=== PATIENT | female | born 1990 | race American Indian/Alaskan Native ===

== ENCOUNTER 2016-11-24 20:29 | Emergency (ER) | payer MEDICAID, OTHER ==
--- NOTE | 2016-11-25 00:33 | Emergency Department Report ---
Eye Injury/Foreign Body - HPI Duration: 2 Days Eye Location: Right Severity: Moderate Eye Symptoms: Eye Pain: Yes, Blurred Vision: Yes, Eye Redness: Yes, Recalls Injury: Yes Other History: 25-year-old female past medical history corneal abrasion in the past. Patient states that yesterday she was playing with her child at home child kicked her in the right eye. Patient experienced immediate pain in right eye and subsequently developed slightly blurry vision and watery discharge right eye. Patient states that she wears contacts but was not wearing her contacts last night. Patient is awake alert and oriented 3 right eye appears red and injected. Patient states that bright lights are painful. Denies any bleeding from my states that her overall vision is intact. Unaware of tetanus status. ED Review of Systems ROS: Stated complaint: EYE PAIN Other details as noted in HPI Constitutional: denies: chills, fever Eyes: eye pain, eye discharge. denies: vision change ENT: denies: ear pain, throat pain Respiratory: denies: cough, shortness of breath, wheezing Cardiovascular: denies: chest pain, palpitations Endocrine: no symptoms reported Gastrointestinal: denies: abdominal pain, nausea, diarrhea Genitourinary: denies: urgency, dysuria, discharge Musculoskeletal: denies: back pain, joint swelling, arthralgia Skin: denies: rash, lesions Neurological: denies: headache, weakness, paresthesias Psychiatric: denies: anxiety, depression Hematological/Lymphatic: denies: easy bleeding, easy bruising ED Past Medical Hx - Past Medical History Previous Medical History?: No - Surgical History Past Surgical History?: Yes Additional Surgical History: 2 - Social History Smoking Status: Current Every Day Smoker Substance Use Type: Alcohol - Medications Home Medications: Home Medications Medication Instructions Recorded Confirmed Last Taken Type metroNIDAZOLE [Flagyl] 500 mg PO BID #14 tablet 11/14/14 Unknown Rx Nitrofurantoin [place]/M-Cryst 100 mg PO Q12HR #14 capsule 11/15/14 Unknown Rx [Macrobid] Acetaminophen/Codeine [Tylenol #3] 1 tab PO Q6H PRN #21 tab 05/08/15 Unknown Rx Moxifloxacin 0.5% [Vigamox] 1 drops OD Q8H #1 bottle 05/08/15 Unknown Rx Cyclobenzaprine [Flexeril] 10 mg PO TID PRN #15 tablet 02/23/16 Unknown Rx Ibuprofen [Motrin 800 MG tab] 800 mg PO Q8HR PRN #30 tablet 02/23/16 Unknown Rx Acetaminophen/Codeine [Tylenol 1 tab PO Q6H PRN #8 tab 11/25/16 Unknown Rx /Codeine # 3 tab] Naproxen [Naprosyn TAB] 500 mg PO BID PRN #30 tablet 11/25/16 Unknown Rx Polyvinyl Alcohol/Povidone 15 ml OP Q4H PRN #1 drops 11/25/16 Unknown Rx [Artificial Tears Drops] Tobramycin 0.3% [Tobrex] 1 drop OU Q4H #1 bottle 11/25/16 Unknown Rx Eye Injury Exam - Exam General: Vital signs noted. No distress. Alert and acting appropriately. - Visual Acuity Left Vision Acuity Degree: 20/70 Eye Exam: Right Injection, Right Fluorescein Uptake (slight abrasion adjacent to pupil right eye), Right Photophobia (midl photophobia right eye), Neither Abnormal Pupil, Neither EOMI, Neither Eye Foreign Body, Neither Lid Foreign Body Right Vision Acuity Degree: 20/70 Bilateral Vision Acuity Degree: 20/50 ED Course Vital Signs 11/24/16 20:40 Temperature 98.5 F Pulse Rate 89 Respiratory 14 Rate Blood Pressure 130/77 [Right] O2 Sat by Pulse 98 Oximetry ED Medical Decision Making - Medical Decision Making A/P: Corneal abrasion right eye 1-tetanus updated today 2-naproxen when necessary for pain, short course tyelnol3 3-tobramycin drops right eye, artificial tears right eye 4-Vision 20/30 left eye, vision 20/40 right eye. I advised patient to follow up with an pulp mixer as soon as possible provided her with referral information. Patient's overall vision is intact, visible corneal abrasion on surface of right eye. Chanelle sign negative on clinical exam anterior chamber appears normal no hyphema. I advised patient that she should follow-up with an pulp mixer to mitigate any potential long-term damage to the eye she has had a corneal abrasion in the past and currently has one as well. I warned patient that lack of follow-up with a specialist within the next week could potentially result in blindness and permanent damage to the eye and disability decreased quality of life etc. patient stated she understood the importance of following up with an pulp mixer and will do so as soon as possible 5- I discussed case w/ Dr. Russ before discharge Critical care attestation.: If time is entered above; I have spent that time in minutes in the direct care of this critically ill patient, excluding procedure time. ED Disposition Clinical Impression: Corneal abrasion, right Qualifiers: Encounter type: initial encounter Qualified Code(s): S05.01XA - Injury of conjunctiva and corneal abrasion without foreign body, right eye, initial encounter Disposition: DISCHARGED TO HOME OR SELFCARE Is pt being admited?: No Does the pt Need Aspirin: No Condition: Stable Instructions: Corneal Abrasion (ED) Prescriptions: Acetaminophen/Codeine [Tylenol /Codeine # 3 tab] 1 tab PO Q6H PRN #8 tab PRN Reason: Pain Naproxen [Naprosyn TAB] 500 mg PO BID PRN #30 tablet PRN Reason: Pain Polyvinyl Alcohol/Povidone [Artificial Tears Drops] 15 ml OP Q4H PRN #1 drops PRN Reason: Pain Tobramycin 0.3% [Tobrex] 1 drop OU Q4H #1 bottle Referrals: BRYANNA RAPP MD [Staff Physician] - 3-5 Days [facility] [Outside] - 3-5 Days Forms: Work/School Release Form(ED) Time of Disposition: 01:30
[2016-11-25] MEDS ORDERED: TETRACAINE 0.5% OU ONE (00:34)
[2016-11-25] MEDS ORDERED: FUL-GLO OP ONE (00:34)
[2016-11-25] MEDS ORDERED: BOOSTRIX IM ONE (01:47)
[2016-11-25 02:32] VITALS: BP 130/72
== END 2016-11-25 02:00 | disposition home or self-care (01) ==
LOC: ED 20:29
DX: S05.01XA Injury of conjunctiva and corneal abrasion without foreign body, right eye, initial encounter (principal); F17.200 Nicotine dependence, unspecified, uncomplicated; W50.1XXA Accidental kick by another person, initial encounter; Y93.89 Activity, other specified; Y99.9 Unspecified external cause status; Y92.89 Other specified places as the place of occurrence of the external cause
CPT/HCPCS: 90471; 90715

== ENCOUNTER 2017-04-11 21:42 | Emergency (ER) | payer MEDICAID | END 2017-04-11 22:00 | disposition left against medical advice (07) | LOC: ED 21:42 | DX: B01.9 Varicella without complication (principal); Z53.21 Procedure and treatment not carried out due to patient leaving prior to being seen by health care provider ==

== ENCOUNTER 2017-08-06 20:31 | Emergency (ER) | payer MEDICAID ==
[2017-08-06] MEDS ORDERED: ASPIRIN PO ONE (21:01)
[2017-08-06 21:45] LABS: Bilirubin,Urine NEG (Negative); Blood,Urine SM (Negative); Color,Urine Yellow (Yellow); Mucus,Urine FEW /HPF; Nitrite,Urine NEG (Negative)
[2017-08-06 22:01] LABS: Basophils % (Auto) 0.4 % (0.0-1.8); Eosinophils % (Auto) 0.4 % (0.0-4.3); Hematocrit 39.3 % (30.3-42.9); Hemoglobin 12.9 gm/dl (10.1-14.3); Lymphocytes % (Auto) 35.7 % (13.4-35.0); Mean Corpuscular HGB Conc 33 % (30-34); Mean Corpuscular Hemoglobin 31 pg (28-32); Mean Corpuscular Volume 93 fl (79-97); Monocytes # (Auto) 0.4 K/mm3 (0.0-0.8); Monocytes % (Auto) 6.4 % (0.0-7.3); Platelet Count 212 K/mm3 (140-440); Red Blood Count 4.21 M/mm3 (3.65-5.03); Red Cell Distribution Width 14.1 % (13.2-15.2)
[2017-08-06 22:04] LABS: BUN/Creatinine Ratio 23; Blood Urea Nitrogen 16 mg/dL (7-17); Calcium 9.1 mg/dL (8.4-10.2); Hemolysis Index 18
[2017-08-06 22:11] LABS: INR 0.92 (0.87-1.13)
[2017-08-06 22:12] LABS: Partial Thromboplastin Time 28.6 Sec. (24.2-36.6)
--- NOTE | 2017-08-07 04:05 | Emergency Department Report ---
ED Chest Pain HPI - General Chief Complaint: Chest Pain Stated Complaint: CHEST PAIN Source: patient Mode of arrival: Ambulatory Limitations: No Limitations - History of Present Illness Initial Comments: Patient is 26 years old female with no significant past medical history presented with left-sided chest pain for the last 3 days. She described her chest as sharp increase in his movements. Patient denied any shortness of breath, no nausea no vomiting. Patient denied any fever. MD Complaint: chest pain -: days(s) Pain Location: substernal Severity scale (0 -10): 8 Quality: sharp Improves With: remaining still Worsens With: movement - Related Data Previous Rx's Medication Instructions Recorded Last Taken Type metroNIDAZOLE [Flagyl] 500 mg PO BID #14 tablet 11/14/14 Unknown Rx Nitrofurantoin [place]/M-Cryst 100 mg PO Q12HR #14 capsule 11/15/14 Unknown Rx [Macrobid] Acetaminophen/Codeine [Tylenol #3] 1 tab PO Q6H PRN #21 tab 05/08/15 Unknown Rx Moxifloxacin 0.5% [Vigamox] 1 drops OD Q8H #1 bottle 05/08/15 Unknown Rx Cyclobenzaprine [Flexeril] 10 mg PO TID PRN #15 tablet 02/23/16 Unknown Rx Ibuprofen [Motrin 800 MG tab] 800 mg PO Q8HR PRN #30 tablet 02/23/16 Unknown Rx Acetaminophen/Codeine [Tylenol 1 tab PO Q6H PRN #8 tab 11/25/16 Unknown Rx /Codeine # 3 tab] Naproxen [Naprosyn TAB] 500 mg PO BID PRN #30 tablet 11/25/16 Unknown Rx Polyvinyl Alcohol/Povidone 15 ml OP Q4H PRN #1 drops 11/25/16 Unknown Rx [Artificial Tears Drops] Tobramycin 0.3% [Tobrex] 1 drop OU Q4H #1 bottle 11/25/16 Unknown Rx Allergies Allergy/AdvReac Type Severity Reaction Status Date / Time No Known Allergies Allergy Verified 05/08/15 18:17 Heart Score - HEART Score History: Slightly suspicious EKG: Normal Age: < 45 Risk factors: No known risk factors Troponin: < normal limit HEART Score: 0 - Critical Actions Critical Actions: 0-3 pts:0.9-1.7%risk of adverse cardiac event.Candidate for discharge ED Review of Systems ROS: Stated complaint: CHEST PAIN Other details as noted in HPI Comment: All other systems reviewed and negative Constitutional: denies: chills, fever Respiratory: denies: cough, orthopnea, shortness of breath Cardiovascular: chest pain. denies: palpitations, dyspnea on exertion Gastrointestinal: denies: abdominal pain, nausea, vomiting, diarrhea, constipation Genitourinary: denies: urgency Neurological: denies: headache, weakness, numbness, paresthesias ED Past Medical Hx - Past Medical History Previous Medical History?: No - Surgical History Past Surgical History?: Yes Additional Surgical History: 2 - Social History Smoking Status: Never Smoker - Medications Home Medications: Home Medications Medication Instructions Recorded Confirmed Last Taken Type metroNIDAZOLE [Flagyl] 500 mg PO BID #14 tablet 11/14/14 Unknown Rx Nitrofurantoin [place]/M-Cryst 100 mg PO Q12HR #14 capsule 11/15/14 Unknown Rx [Macrobid] Acetaminophen/Codeine [Tylenol #3] 1 tab PO Q6H PRN #21 tab 05/08/15 Unknown Rx Moxifloxacin 0.5% [Vigamox] 1 drops OD Q8H #1 bottle 05/08/15 Unknown Rx Cyclobenzaprine [Flexeril] 10 mg PO TID PRN #15 tablet 02/23/16 Unknown Rx Ibuprofen [Motrin 800 MG tab] 800 mg PO Q8HR PRN #30 tablet 02/23/16 Unknown Rx Acetaminophen/Codeine [Tylenol 1 tab PO Q6H PRN #8 tab 11/25/16 Unknown Rx /Codeine # 3 tab] Naproxen [Naprosyn TAB] 500 mg PO BID PRN #30 tablet 11/25/16 Unknown Rx Polyvinyl Alcohol/Povidone 15 ml OP Q4H PRN #1 drops 11/25/16 Unknown Rx [Artificial Tears Drops] Tobramycin 0.3% [Tobrex] 1 drop OU Q4H #1 bottle 11/25/16 Unknown Rx ED Physical Exam - General Limitations: No Limitations General appearance: alert, in no apparent distress - Head Head exam: Present: atraumatic, normocephalic, normal inspection - ENT ENT exam: Present: normal exam, normal orophraynx - Neck Neck exam: Present: normal inspection, full ROM. Absent: tenderness, meningismus - Respiratory Respiratory exam: Present: normal lung sounds bilaterally, chest wall tenderness. Absent: respiratory distress, wheezes, rales, rhonchi, stridor, accessory muscle use, decreased breath sounds, prolonged expiratory - Cardiovascular Cardiovascular Exam: Present: regular rate, normal rhythm, normal heart sounds - GI/Abdominal GI/Abdominal exam: Present: soft, normal bowel sounds. Absent: distended, tenderness, guarding, rebound, rigid, organomegaly, mass, bruit, pulsatile mass , hernia - Extremities Exam Extremities exam: Present: normal inspection, full ROM, normal capillary refill - Back Exam Back exam: Present: normal inspection, full ROM. Absent: tenderness, CVA tenderness (R), CVA tenderness (L) - Neurological Exam Neurological exam: Present: alert, oriented X3, CN II-XII intact - Skin Skin exam: Present: warm, intact, normal color ED Course Vital Signs 08/06/17 08/07/17 08/07/17 20:57 01:01 01:15 Temperature 98.8 F 97.8 F Pulse Rate 73 74 Respiratory 16 16 Rate Blood Pressure 110/72 O2 Sat by Pulse 99 Oximetry ED Medical Decision Making - Lab Data Result diagrams: 08/06/17 21:25 08/06/17 21:25 - EKG Data -: EKG Interpreted by Ca EKG shows normal: sinus rhythm Rate: normal - EKG Data Interpretation: no acute changes Critical care attestation.: If time is entered above; I have spent that time in minutes in the direct care of this critically ill patient, excluding procedure time. ED Disposition Clinical Impression: Chest pain, Costochondritis, acute Disposition: - TO HOME OR SELFCARE Is pt being admited?: No Condition: Stable Instructions: Chest Pain (ED), Costochondritis (ED) Referrals: MELI OCHOA MD [Primary Care Provider] - 3-5 Days
[2017-08-07 04:24] VITALS: BP 146/95
== END 2017-08-07 04:24 | disposition home or self-care (01) ==
LOC: ED 20:31
DX: M94.0 Chondrocostal junction syndrome [Tietze] (principal)
CPT/HCPCS: 36415; 80048; 81001; 84484; 84703; 85025; 85610; 85730; 93005; 93010

== ENCOUNTER 2017-12-04 20:44 | Emergency (ER) | payer MEDICAID ==
[2017-12-04 22:04] LABS: Bilirubin,Urine NEG (Negative); Blood,Urine SM (Negative); Color,Urine Yellow (Yellow); Hyaline Casts,Urine 1 /LPF; Mucus,Urine FEW /HPF; Urobilinogen,Urine < 2.0 mg/dL (<2.0)
[2017-12-05] MEDS ORDERED: TYLENOL PO ONE (06:43)
[2017-12-05 07:59] VITALS: BP 130/70
--- NOTE | 2017-12-05 08:11 | Ultrasound Report ---
Pelvic and transvaginal sonography: History: with pelvic pain. Findings: Uterus measures 10.7 x 4.1 x 6.4 cm. Single intrauterine gestational sac is noted. Dilated to the gestational sac is 8.8 mm corresponding to 5 weeks and 5 days of gestation. Yolk sac is identified however no heart rate was seen or documented. Right ovary 4.6 x 1.7 x 1.4 cm. Left ovary 3.4 x 1.6 x 2.3 cm. Complex cyst in the left ovary measures 1.7 cm. Moderate amount of fluid identified in the cul-de-sac. Impression: Single gestational sac with yolk sac identified.
--- NOTE | 2017-12-05 08:35 | Emergency Department Report ---
ED HPI - General Chief complaint: Urogenital-Female Stated complaint: ABD PAIN/ Time Seen by Provider: 12/05/17 06:15 Source: patient Mode of arrival: Ambulatory Limitations: No Limitations - History of Present Illness Initial comments: Patient is a 26-year-old [place] female who is presenting with lower abdominal crampiness. Patient took a Percocet test at home which was positive. Patient was estimated that she is between 5 and 6 weeks. Patient states she has no abnormal bleeding vaginal discharge or dysuria and her only complaint is pelvic pain and cramping. Patient states his pain is tenderness severity. Patient denies any nausea vomiting or diarrhea at this time. - Related Data Previous Rx's Medication Instructions Recorded Last Taken Type metroNIDAZOLE [Flagyl] 500 mg PO BID #14 tablet 11/14/14 Unknown Rx Nitrofurantoin [place]/M-Cryst 100 mg PO Q12HR #14 capsule 11/15/14 Unknown Rx [Macrobid] Acetaminophen/Codeine [Tylenol #3] 1 tab PO Q6H PRN #21 tab 05/08/15 Unknown Rx Moxifloxacin 0.5% [Vigamox] 1 drops OD Q8H #1 bottle 05/08/15 Unknown Rx Cyclobenzaprine [Flexeril] 10 mg PO TID PRN #15 tablet 02/23/16 Unknown Rx Ibuprofen [Motrin 800 MG tab] 800 mg PO Q8HR PRN #30 tablet 02/23/16 Unknown Rx Acetaminophen/Codeine [Tylenol 1 tab PO Q6H PRN #8 tab 11/25/16 Unknown Rx /Codeine # 3 tab] Naproxen [Naprosyn TAB] 500 mg PO BID PRN #30 tablet 11/25/16 Unknown Rx Polyvinyl Alcohol/Povidone 15 ml OP Q4H PRN #1 drops 11/25/16 Unknown Rx [Artificial Tears Drops] Tobramycin 0.3% [Tobrex] 1 drop OU Q4H #1 bottle 11/25/16 Unknown Rx Naproxen [Naprosyn] 500 mg PO BID #14 tablet 08/07/17 Unknown Rx Allergies Allergy/AdvReac Type Severity Reaction Status Date / Time No Known Allergies Allergy Verified 05/08/15 18:17 ED Review of Systems ROS: Stated complaint: ABD PAIN/ Other details as noted in HPI Comment: All other systems reviewed and negative ED Past Medical Hx - Past Medical History Previous Medical History?: No - Surgical History Additional Surgical History: 2 - Social History Smoking Status: Never Smoker Substance Use Type: None - Medications Home Medications: Home Medications Medication Instructions Recorded Confirmed Last Taken Type metroNIDAZOLE [Flagyl] 500 mg PO BID #14 tablet 11/14/14 Unknown Rx Nitrofurantoin [place]/M-Cryst 100 mg PO Q12HR #14 capsule 11/15/14 Unknown Rx [Macrobid] Acetaminophen/Codeine [Tylenol #3] 1 tab PO Q6H PRN #21 tab 05/08/15 Unknown Rx Moxifloxacin 0.5% [Vigamox] 1 drops OD Q8H #1 bottle 05/08/15 Unknown Rx Cyclobenzaprine [Flexeril] 10 mg PO TID PRN #15 tablet 02/23/16 Unknown Rx Ibuprofen [Motrin 800 MG tab] 800 mg PO Q8HR PRN #30 tablet 02/23/16 Unknown Rx Acetaminophen/Codeine [Tylenol 1 tab PO Q6H PRN #8 tab 11/25/16 Unknown Rx /Codeine # 3 tab] Naproxen [Naprosyn TAB] 500 mg PO BID PRN #30 tablet 11/25/16 Unknown Rx Polyvinyl Alcohol/Povidone 15 ml OP Q4H PRN #1 drops 11/25/16 Unknown Rx [Artificial Tears Drops] Tobramycin 0.3% [Tobrex] 1 drop OU Q4H #1 bottle 11/25/16 Unknown Rx Naproxen [Naprosyn] 500 mg PO BID #14 tablet 08/07/17 Unknown Rx ED Physical Exam - General Limitations: No Limitations General appearance: alert, in no apparent distress - Head Head exam: Present: atraumatic, normocephalic - Eye Eye exam: Present: normal appearance - ENT ENT exam: Present: mucous membranes moist - Neck Neck exam: Present: normal inspection - Respiratory Respiratory exam: Present: normal lung sounds bilaterally. Absent: respiratory distress - Cardiovascular Cardiovascular Exam: Present: regular rate, normal rhythm. Absent: systolic murmur, diastolic murmur, rubs, gallop - GI/Abdominal GI/Abdominal exam: Present: soft, tenderness (mild ssuprapubic ), normal bowel sounds. Absent: distended, guarding - Extremities Exam Extremities exam: Present: normal inspection - Back Exam Back exam: Present: normal inspection - Neurological Exam Neurological exam: Present: alert, oriented X3 - Psychiatric Psychiatric exam: Present: normal affect, normal mood - Skin Skin exam: Present: warm, dry, intact, normal color. Absent: rash ED Course Vital Signs 12/04/17 12/05/17 12/05/17 21:00 06:43 06:44 Temperature 98.5 F Pulse Rate 85 88 Respiratory 18 20 20 Rate Blood Pressure 138/78 Blood Pressure 128/74 [Left] O2 Sat by Pulse 100 100 99 Oximetry 12/05/17 07:58 Temperature 98.5 F Pulse Rate 88 Respiratory Rate Blood Pressure Blood Pressure 130/70 [Left] O2 Sat by Pulse 99 Oximetry ED Medical Decision Making - Lab Data Lab Results 12/04/17 12/04/17 Range/Units 21:18 21:37 HCG, Quant 4181 H (0-4) mIU/mL Urine Color Yellow (Yellow) Urine Turbidity Clear (Clear) Urine pH 5.0 (5.0-7.0) Ur Specific [place] 1.021 (1.003-1.030) Urine Protein 100 mg/dl (Negative) mg/dL Urine Glucose (UA) Neg (Negative) mg/dL Urine Ketones Neg (Negative) mg/dL Urine Blood Sm (Negative) Urine Nitrite Neg (Negative) Urine Bilirubin Neg (Negative) Urine Urobilinogen < 2.0 (<2.0) mg/dL Ur Leukocyte Esterase Neg (Negative) Urine WBC (Auto) 3.0 (0.0-6.0) /HPF Urine RBC (Auto) 6.0 (0.0-6.0) /HPF U Epithel Cells (Auto) 9.0 (0-13.0) /HPF Hyaline Casts 1 /LPF Urine Mucus Few /HPF - Radiology Data Pelvic and transvaginal sonography: History: with pelvic pain. Findings : Uterus measures 10.7 x 4.1 x 6.4 cm. Single intrauterine gestational sac is noted. Dilated to the gestational sac is 8.8 mm corresponding to 5 weeks and 5 days of gestation. Yolk sac is identified however no heart rate was seen or documented. Right ovary 4.6 x 1.7 x 1.4 cm. Left ovary 3.4 x 1.6 x 2.3 cm. Complex cyst in the left ovary measures 1.7 cm. Moderate amount of fluid identified in the cul-de-sac. Impression: Single gestational sac with yolk sac identified. Transcribed By: PTP Dictated By: YESSICA TOMPKINS MD Electronically Authenticated By: YESSICA TOMPKINS MD Signed Date/Time: 12/05/17 0749 - Medical Decision Making Ectopic has been ruled out at this time. The patient has no vaginal bleeding or vaginal discharge and pelvic exams deferred. Patient's urinalysis is negative for urinary tract infection. Patient is having some crampiness associated with . Patient be discharged home. Critical care attestation.: If time is entered above; I have spent that time in minutes in the direct care of this critically ill patient, excluding procedure time. ED Disposition Clinical Impression: Abdominal pain affecting Disposition: DC-01 TO HOME OR SELFCARE Is pt being admited?: No Does the pt Need Aspirin: No Condition: Stable Referrals: PRIMARY CAREMD [Primary Care Provider] - 3-5 Days
== END 2017-12-05 08:48 | disposition home or self-care (01) ==
LOC: ED 20:44
DX: O26.891 Other specified pregnancy related conditions, first trimester (principal); R10.2 Pelvic and perineal pain; Z3A.01 Less than 8 weeks gestation of pregnancy
CPT/HCPCS: 36415; 76801; 76817; 81001; 84702; 99284

== ENCOUNTER 2019-03-13 15:22 | Emergency (ER) | payer MEDICAID ==
[2019-03-13 16:04] VITALS: BP 134/76
--- NOTE | 2019-03-13 16:04 | Event Note ---
ED Screening Note ED Screening Note: states she has swelling to her vagina this morning no itching no lesions or blisters no discharge no dysuria LNMP: February 20 This initial assessment/diagnostic orders/clinical plan/treatment(s) is/are subject to change based on patients health status, clinical progression and re- assessment by fellow clinical providers in the ED. Further treatment and workup at subsequent clinical providers discretion. Patient/guardian urged not to elope from the ED as their condition may be serious if not clinically assessed and managed.
--- NOTE | 2019-03-13 18:33 | Emergency Department Report ---
ED Female HPI - General Chief complaint: Urogenital-Female Stated complaint: VAGINAL AREA SWOLLEN Time Seen by Provider: 03/13/19 16:03 Source: patient Mode of arrival: Ambulatory Limitations: No Limitations - History of Present Illness Initial comments: This is a 28-year-old female nontoxic, well nourished in appearance, no acute signs of distress presents to the ED with c/o of vaginal irritation and some slight vaginal discharge. Patient stated that she has been taking medication to increase fertility and had sexual intercourse few times a day for several weeks and since then started to have vaginal irritation. Patient describes vaginal discharge with slight foul order. Patient states she is not concerned about STD but would like to be tested. Patient denies any urinary symptoms. Patient denies any fever, chills, nausea, vomiting, chest pain, shortness of breath, headache or stiff neck. Patient denies any abdominal pain or pelvic pain. Denies any allergies to significant past medical history. MD Complaint: vaginal discharge -: days(s) Associated Symptoms: vaginal discharge. denies: vaginal bleeding, abdominal pain, nausea/vomiting, fever/chills, headaches, loss of appetite, dysuria, hematuria, rash, seizure, shortness of breath, syncope, weakness - Related Data Sexually active: Yes Previous Rx's Medication Instructions Recorded Last Taken Type metroNIDAZOLE [Flagyl] 500 mg PO BID #14 tablet 11/14/14 Unknown Rx Nitrofurantoin Hanson/M-Cryst 100 mg PO Q12HR #14 capsule 11/15/14 Unknown Rx [Macrobid] Acetaminophen/Codeine [Tylenol #3] 1 tab PO Q6H PRN #21 tab 05/08/15 Unknown Rx Moxifloxacin 0.5% [Vigamox] 1 drops OD Q8H #1 bottle 05/08/15 Unknown Rx Cyclobenzaprine [Flexeril] 10 mg PO TID PRN #15 tablet 02/23/16 Unknown Rx Ibuprofen [Motrin 800 MG tab] 800 mg PO Q8HR PRN #30 tablet 02/23/16 Unknown Rx Acetaminophen/Codeine [Tylenol 1 tab PO Q6H PRN #8 tab 11/25/16 Unknown Rx /Codeine # 3 tab] Naproxen [Naprosyn TAB] 500 mg PO BID PRN #30 tablet 11/25/16 Unknown Rx Polyvinyl Alcohol/Povidone 15 ml OP Q4H PRN #1 drops 11/25/16 Unknown Rx [Artificial Tears Drops] Tobramycin 0.3% [Tobrex] 1 drop OU Q4H #1 bottle 11/25/16 Unknown Rx Naproxen [Naprosyn] 500 mg PO BID #14 tablet 08/07/17 Unknown Rx metroNIDAZOLE [Flagyl] 500 mg PO Q12HR #14 tab 03/13/19 Unknown Rx Allergies Allergy/AdvReac Type Severity Reaction Status Date / Time No Known Allergies Allergy Verified 05/08/15 18:17 ED Review of Systems ROS: Stated complaint: VAGINAL AREA SWOLLEN Other details as noted in HPI Constitutional: denies: chills, fever Eyes: denies: eye pain, eye discharge, vision change ENT: denies: ear pain, throat pain Respiratory: denies: cough, shortness of breath, wheezing Cardiovascular: denies: chest pain, palpitations Endocrine: no symptoms reported Gastrointestinal: denies: abdominal pain, nausea, diarrhea Genitourinary: discharge. denies: urgency, dysuria Musculoskeletal: denies: back pain, joint swelling, arthralgia Skin: denies: rash, lesions Neurological: denies: headache, weakness, paresthesias Psychiatric: denies: anxiety, depression Hematological/Lymphatic: denies: easy bleeding, easy bruising ED Past Medical Hx - Past Medical History Previous Medical History?: No - Surgical History Past Surgical History?: No Additional Surgical History: 2 - Social History Smoking Status: Never Smoker Substance Use Type: None - Medications Home Medications: Home Medications Medication Instructions Recorded Confirmed Last Taken Type metroNIDAZOLE [Flagyl] 500 mg PO BID #14 tablet 11/14/14 Unknown Rx Nitrofurantoin Hanson/M-Cryst 100 mg PO Q12HR #14 capsule 11/15/14 Unknown Rx [Macrobid] Acetaminophen/Codeine [Tylenol #3] 1 tab PO Q6H PRN #21 tab 05/08/15 Unknown Rx Moxifloxacin 0.5% [Vigamox] 1 drops OD Q8H #1 bottle 05/08/15 Unknown Rx Cyclobenzaprine [Flexeril] 10 mg PO TID PRN #15 tablet 02/23/16 Unknown Rx Ibuprofen [Motrin 800 MG tab] 800 mg PO Q8HR PRN #30 tablet 02/23/16 Unknown Rx Acetaminophen/Codeine [Tylenol 1 tab PO Q6H PRN #8 tab 11/25/16 Unknown Rx /Codeine # 3 tab] Naproxen [Naprosyn TAB] 500 mg PO BID PRN #30 tablet 11/25/16 Unknown Rx Polyvinyl Alcohol/Povidone 15 ml OP Q4H PRN #1 drops 11/25/16 Unknown Rx [Artificial Tears Drops] Tobramycin 0.3% [Tobrex] 1 drop OU Q4H #1 bottle 11/25/16 Unknown Rx Naproxen [Naprosyn] 500 mg PO BID #14 tablet 08/07/17 Unknown Rx metroNIDAZOLE [Flagyl] 500 mg PO Q12HR #14 tab 03/13/19 Unknown Rx ED Physical Exam - General Limitations: No Limitations General appearance: alert, in no apparent distress - Head Head exam: Present: atraumatic, normocephalic - GI/Abdominal GI/Abdominal exam: Present: soft, normal bowel sounds. Absent: distended, tenderness, guarding, rebound, rigid, diminished bowel sounds - External exam: Present: normal external exam, other (waterproofing supervisor Shaotia present during exam). Absent: erythema, swelling, lesions, lacerations, ecchymosis, bleeding Speculum exam: Present: cervical discharge, other (waterproofing supervisor Shaotia present during exam). Absent: erythema, vaginal discharge, vaginal bleeding, foreign body, tissue, laceration Bi-manual exam: Present: normal bi-manual exam, other (waterproofing supervisor Shaotia present during exam). Absent: cervical motion tendernes, adnexal tenderness, adnexal mass, uterine enlargement, uterine tenderness - Extremities Exam Extremities exam: Present: normal inspection, full ROM - Back Exam Back exam: Present: normal inspection, full ROM. Absent: tenderness, CVA tenderness (R), CVA tenderness (L), muscle spasm, paraspinal tenderness, vertebral tenderness, rash noted - Neurological Exam Neurological exam: Present: alert, oriented X3, normal gait - Psychiatric Psychiatric exam: Present: normal affect, normal mood - Skin Skin exam: Present: warm, dry, intact, normal color. Absent: rash ED Course Vital Signs 03/13/19 16:03 Temperature 98.4 F Pulse Rate 101 H Respiratory 16 Rate Blood Pressure 134/76 [Left] O2 Sat by Pulse 99 Oximetry - Reevaluation(s) Reevaluation #1: 03/13/19 18:32 Patient is speaking in full sentences with no signs of distress noted. ED Medical Decision Making - Medical Decision Making This is a 28-year-old female that presents with vaginal irritation and BV. Patient is stable was examined by me. Most likely the vaginal irritation is from sexual intercourse. THere is no abdominal tenderness. No pelvic pain. UA obtained. Wet prep obtained. Gonorrhea chlamydia swab pending. Patient was instructed to return in 3-5 days for GC results. Patient was instructed to Follow-up with a primary care doctor in 3-5 days or if symptoms worsen and continue return to emergency room as soon as possible. At time of discharge, the patient does not seem toxic or ill in appearance. No acute signs of distress noted. Patient agrees to discharge treatment plan of care. No further questions noted by the patient. Critical care attestation.: If time is entered above; I have spent that time in minutes in the direct care of this critically ill patient, excluding procedure time. ED Disposition Clinical Impression: Vaginal irritation, Bacterial vaginosis Disposition: TO HOME OR SELFCARE Is pt being admited?: No Does the pt Need Aspirin: No Condition: Stable Instructions: Metronidazole (By mouth), Bacterial Vaginosis (ED) Additional Instructions: Follow-up with a primary care doctor in 3-5 days or if symptoms worsen and continue return to emergency room as soon as possible. Return in 3-5 days for gonorrhea and Chlamydia results. Prescriptions: metroNIDAZOLE [Flagyl] 500 mg PO Q12HR #14 tab Referrals: PRIMARY CAREMD [Primary Care Provider] - 3-5 Days BETZAIDA CASTAÑEDA MD [Staff Physician] - 3-5 Days [facility] [Outside] - 3-5 Days [facility] [Outside] - 3-5 Days Forms: Work/School Release Form(ED)
[2019-03-13 19:19] LABS: Bilirubin,Urine NEG (Negative); Blood,Urine MOD (Negative); Color,Urine Yellow (Yellow); HCG Qualitative,Urine Negative (Negative); Mucus,Urine FEW /HPF; Urobilinogen,Urine < 2.0 mg/dL (<2.0)
== END 2019-03-13 20:27 | disposition home or self-care (01) ==
LOC: ED 15:22
DX: N76.0 Acute vaginitis (principal); Z79.899 Other long term (current) drug therapy
CPT/HCPCS: 81001; 81025; 87210; 87591; 99284

== ENCOUNTER 2019-03-31 13:35 | Emergency (ER) | payer MEDICAID ==
--- NOTE | 2019-03-31 13:47 | Emergency Department Report ---
Blank Doc - Documentation Documentation: This is a 28-year-old female that presents with pelvic pain. Denies any vaginal bleeding. Stated is but is not sure how along. This initial assessment/diagnostic orders/clinical plan/treatment(s) is/are subject to change based on patient's health status, clinical progression and re- assessment by fellow clinical providers in the ED. Further treatment and workup at subsequent clinical providers discretion. Patient/guardians urged not to elope from the ED as their condition may be serious if not clinically assessed and managed. Initial orders include: 1- Patient sent to [facility] for further evaluation and treatment 2- UA 3- US OB 4- labs
[2019-03-31 14:38] LABS: Basophils % (Auto) 0.6 % (0.0-1.8); Eosinophils # (Auto) 0.1 K/mm3 (0.0-0.4); Eosinophils % (Auto) 0.8 % (0.0-4.3); Hematocrit 37.1 % (30.3-42.9); Hemoglobin 12.5 gm/dl (10.1-14.3); Lymphocytes # (Auto) 1.9 K/mm3 (1.2-5.4); Lymphocytes % (Auto) 29.9 % (13.4-35.0); Mean Corpuscular HGB Conc 34 % (30-34); Mean Corpuscular Volume 91 fl (79-97); Monocytes # (Auto) 0.5 K/mm3 (0.0-0.8); Monocytes % (Auto) 7.4 % (0.0-7.3); Platelet Count 215 K/mm3 (140-440); Red Blood Count 4.07 M/mm3 (3.65-5.03); Red Cell Distribution Width 13.8 % (13.2-15.2)
--- NOTE | 2019-03-31 15:13 | Ultrasound Report ---
ULTRASOUND OBSTETRIC Indication: pelvic pain Findings: Transit abdominal and transvaginal imaging is performed. There is a single, living intrauterine . Gestational sac equals 7 mm. This correlates to a 5 week 3 day gestation. Gestational sac is identifi ed within the uterine cavity. No pole or yolk sac is seen at this time. Follow-up is necessary. There is a 2.4 cm cyst in the left ovary and a 3 cm cyst in the right ovary. There is a 3 cm solid-ap pearing abnormality in the right ovary which also requires follow-up. Impression: Gestational sac is identified within the uterine cavity possibly representing very early gestation. N o pole or yolk sac is seen at this time. Correlation with serum beta hCG levels is recommended. Follow-up ultrasound should be obtained as clinically warranted to reevaluate for pole. There is a 3 cm solid appearing structure in the right ovary. This will need to be evaluated with fol low-up ultrasound as well. Signer Name: Pepe Joya MD Signed: 03/31/2019 3:09 PM Workstation Name: [id number]
[2019-03-31 16:32] LABS: Bacteria,Urine 1+ /HPF (Negative); Bilirubin,Urine NEG (Negative); Blood,Urine NEG (Negative); Color,Urine Yellow (Yellow); Mucus,Urine FEW /HPF; Urobilinogen,Urine < 2.0 mg/dL (<2.0)
--- NOTE | 2019-03-31 17:41 | Emergency Department Report ---
ED Female HPI - General Chief complaint: Abdominal Pain Stated complaint: PELVIC PAIN Time Seen by Provider: 03/31/19 13:46 Source: patient Mode of arrival: Ambulatory Limitations: No Limitations - History of Present Illness Initial comments: This is a 28-year-old -British female who presents to the emergency room with pelvic and vaginal pain for 3 weeks. Patient states she is currently MDM followed by [facility]AL TRIMMER MACHINE OPERATOR. Patient states she was seen by [facility] 2 weeks ago at for STD screening. Patient states she was started on metronidazole for bacterial vaginitis. She received a call last week informing her of all labs normal and to discontinue antibiotics. She continue to experience pelvic and vaginal pain that is worse with sitting. She denies vaginal discharge, back pain, vaginal bleeding, urinary frequency, urgency, or dysuria. MD Complaint: pelvic pain Onset/Timin -: week(s) Location: suprapubic Radiation: non-radiating Severity: moderate Severity scale (0 -10): 5 Quality: other (pressure) Consistency: intermittent Improves with: none Worsens with: other (sitting) Are you Now?: Yes Last Menstrual Period: 02/19/19 EDC: 11/26/19 Associated Symptoms: abdominal pain. denies: vaginal discharge, vaginal bleeding, nausea/vomiting, fever/chills, headaches, loss of appetite, dysuria, hematuria, rash, seizure, shortness of breath, syncope, weakness - Related Data Sexually active: Yes : 4 Para: 1 A: 2 (abortions) Previous Rx's Medication Instructions Recorded Last Taken Type metroNIDAZOLE [Flagyl] 500 mg PO BID #14 tablet 11/14/14 Unknown Rx Nitrofurantoin Cassia/M-Cryst 100 mg PO Q12HR #14 capsule 11/15/14 Unknown Rx [Macrobid] Acetaminophen/Codeine [Tylenol #3] 1 tab PO Q6H PRN #21 tab 05/08/15 Unknown Rx Moxifloxacin 0.5% [Vigamox] 1 drops OD Q8H #1 bottle 05/08/15 Unknown Rx Cyclobenzaprine [Flexeril] 10 mg PO TID PRN #15 tablet 02/23/16 Unknown Rx Ibuprofen [Motrin 800 MG tab] 800 mg PO Q8HR PRN #30 tablet 02/23/16 Unknown Rx Acetaminophen/Codeine [Tylenol 1 tab PO Q6H PRN #8 tab 11/25/16 Unknown Rx /Codeine # 3 tab] Naproxen [Naprosyn TAB] 500 mg PO BID PRN #30 tablet 11/25/16 Unknown Rx Polyvinyl Alcohol/Povidone 15 ml OP Q4H PRN #1 drops 11/25/16 Unknown Rx [Artificial Tears Drops] Tobramycin 0.3% [Tobrex] 1 drop OU Q4H #1 bottle 11/25/16 Unknown Rx Naproxen [Naprosyn] 500 mg PO BID #14 tablet 08/07/17 Unknown Rx metroNIDAZOLE [Flagyl] 500 mg PO Q12HR #14 tab 03/13/19 Unknown Rx Nitrofurantoin Cassia/M-Cryst 100 mg PO Q12HR #10 capsule 03/31/19 Unknown Rx [Macrobid CAP] Allergies Allergy/AdvReac Type Severity Reaction Status Date / Time No Known Allergies Allergy Verified 05/08/15 18:17 ED Review of Systems ROS: Stated complaint: PELVIC PAIN Other details as noted in HPI Constitutional: denies: chills, fever Respiratory: denies: cough, shortness of breath, wheezing Cardiovascular: denies: chest pain, palpitations Gastrointestinal: abdominal pain. denies: nausea, diarrhea Genitourinary: denies: urgency, dysuria, discharge Skin: denies: rash, lesions Neurological: denies: headache, weakness, paresthesias Psychiatric: denies: anxiety, depression ED Past Medical Hx - Past Medical History Previous Medical History?: No - Surgical History Past Surgical History?: No Additional Surgical History: 2 - Social History Smoking Status: Current Some Day Smoker - Medications Home Medications: Home Medications Medication Instructions Recorded Confirmed Last Taken Type metroNIDAZOLE [Flagyl] 500 mg PO BID #14 tablet 11/14/14 Unknown Rx Nitrofurantoin Cassia/M-Cryst 100 mg PO Q12HR #14 capsule 11/15/14 Unknown Rx [Macrobid] Acetaminophen/Codeine [Tylenol #3] 1 tab PO Q6H PRN #21 tab 05/08/15 Unknown Rx Moxifloxacin 0.5% [Vigamox] 1 drops OD Q8H #1 bottle 05/08/15 Unknown Rx Cyclobenzaprine [Flexeril] 10 mg PO TID PRN #15 tablet 02/23/16 Unknown Rx Ibuprofen [Motrin 800 MG tab] 800 mg PO Q8HR PRN #30 tablet 02/23/16 Unknown Rx Acetaminophen/Codeine [Tylenol 1 tab PO Q6H PRN #8 tab 11/25/16 Unknown Rx /Codeine # 3 tab] Naproxen [Naprosyn TAB] 500 mg PO BID PRN #30 tablet 11/25/16 Unknown Rx Polyvinyl Alcohol/Povidone 15 ml OP Q4H PRN #1 drops 11/25/16 Unknown Rx [Artificial Tears Drops] Tobramycin 0.3% [Tobrex] 1 drop OU Q4H #1 bottle 11/25/16 Unknown Rx Naproxen [Naprosyn] 500 mg PO BID #14 tablet 08/07/17 Unknown Rx metroNIDAZOLE [Flagyl] 500 mg PO Q12HR #14 tab 03/13/19 Unknown Rx Nitrofurantoin Cassia/M-Cryst 100 mg PO Q12HR #10 capsule 03/31/19 Unknown Rx [Macrobid CAP] ED Physical Exam - General Limitations: No Limitations General appearance: alert, in no apparent distress - Respiratory Respiratory exam: Present: normal lung sounds bilaterally. Absent: respiratory distress - Cardiovascular Cardiovascular Exam: Present: regular rate, normal rhythm. Absent: systolic murmur, diastolic murmur, rubs, gallop - GI/Abdominal GI/Abdominal exam: Present: soft, normal bowel sounds. Absent: distended, tenderness, guarding, rebound, rigid - External exam: Present: normal external exam - Back Exam Back exam: Absent: CVA tenderness (R), CVA tenderness (L) - Neurological Exam Neurological exam: Present: alert, oriented X3, normal gait - Psychiatric Psychiatric exam: Present: normal affect, normal mood - Skin Skin exam: Present: warm, dry, intact, normal color. Absent: rash ED Course Vital Signs 03/31/19 14:03 Temperature 98.2 F Pulse Rate 100 H Respiratory 16 Rate Blood Pressure 133/73 O2 Sat by Pulse 100 Oximetry ED Medical Decision Making - Lab Data Result diagrams: 03/31/19 14:30 Lab Results 03/31/19 03/31/19 03/31/19 Range/Units 14:30 14:30 16:16 WBC 6.5 (4.5-11.0) K/mm3 RBC 4.07 (3.65-5.03) M/mm3 Hgb 12.5 (10.1-14.3) gm/dl Hct 37.1 (30.3-42.9) % MCV 91 (79-97) fl MCH 31 (28-32) pg MCHC 34 (30-34) % RDW 13.8 (13.2-15.2) % Plt Count 215 (140-440) K/mm3 Lymph % (Auto) 29.9 (13.4-35.0) % Cassia % (Auto) 7.4 H (0.0-7.3) % Eos % (Auto) 0.8 (0.0-4.3) % Baso % (Auto) 0.6 (0.0-1.8) % Lymph # 1.9 (1.2-5.4) K/mm3 Cassia # 0.5 (0.0-0.8) K/mm3 Eos # 0.1 (0.0-0.4) K/mm3 Baso # 0.0 (0.0-0.1) K/mm3 Seg Neutrophils % 61.3 (40.0-70.0) % Seg Neutrophils # 4.0 (1.8-7.7) K/mm3 HCG, Quant 3358 H (0-4) mIU/mL Urine Color Yellow (Yellow) Urine Turbidity Cloudy (Clear) Urine pH 5.0 (5.0-7.0) Ur Specific [place] 1.027 (1.003-1.030) Urine Protein 100 mg/dl (Negative) mg/dL Urine Glucose (UA) Neg (Negative) mg/dL Urine Ketones Neg (Negative) mg/dL Urine Blood Neg (Negative) Urine Nitrite Neg (Negative) Urine Bilirubin Neg (Negative) Urine Urobilinogen < 2.0 (<2.0) mg/dL Ur Leukocyte Esterase Lg (Negative) Urine WBC (Auto) 17.0 H (0.0-6.0) /HPF Urine RBC (Auto) 12.0 (0.0-6.0) /HPF U Epithel Cells (Auto) 7.0 (0-13.0) /HPF Urine Bacteria (Auto) 1+ (Negative) /HPF Urine Mucus Few /HPF Urine Yeast (Budding) Few /HPF - Radiology Data Radiology results: report reviewed ULTRASOUND OBSTETRIC Indication: pelvic pain Findings: Transit abdominal and transvaginal imaging is performed. There is a single, living intrauterine . Gestational sac equals 7 mm. This correlates to a 5 week 3 day gestation. Gestational sac is identified within the uterine cavity. No pole or yolk sac is seen at this time. Follow-up is necessary. There is a 2.4 cm cyst in the left ovary and a 3 cm cyst in the right ovary. There is a 3 cm solid- appearing abnormality in the right ovary which also requires follow-up. Impression: Gestational sac is identified within the uterine cavity possibly representing very early gestation. No pole or yolk sac is seen at this time. Correlation with serum beta hCG levels is recommended. Follow-up ultrasound should be obtained as clinically warranted to reevaluate for pole. There is a 3 cm solid appearing structure in the right ovary. This will need to be evaluated with follow-up ultrasound as well. - Medical Decision Making Patient was examined by me. Patient is nontoxic appearing and stable. Vitals are normal. Obtained labs and OB ultrasound. There is leukocytes estrese and elevated WBCs in urine. The patient was seen by her COAL TRIMMER MACHINE OPERATOR [facility] 3 weeks ago and started on metronidazole. She received a call last week stating all of her labs were negative is to discontinue antibiotics. She denies vaginal di scharge with this visit. A pelvic exam was performed and no signs of infection. Start Macrobid for acute cystitis. Patient informed of bilateral ovarian cyst. She was instructed to have repeat serum Quant drawn in 48 hours by her COAL TRIMMER MACHINE OPERATOR or return to the ER. Instructed to take Tylenol for pain. Follow up with COAL TRIMMER MACHINE OPERATOR at [facility] MACHINE OPERATOR. Patient discharged home in stable condition. Critical care attestation.: If time is entered above; I have spent that time in minutes in the direct care of this critically ill patient, excluding procedure time. ED Disposition Clinical Impression: Threatened miscarriage in early Pelvic pain affecting Qualifiers: Trimester: first trimester Qualified Code(s): O26.891 - Other specified pr egnancy related conditions, first trimester; R10.2 - Pelvic and perineal pain UTI (urinary tract infection) Qualifiers: Urinary tract infection type: acute cystitis Hematuria presence: without hematuria Qualified Code(s): N30.00 - Acute cystitis without hematuria Ovarian cyst Qualifiers: Laterality: bilateral Qualified Code(s): N83.201 - Unspecified ovarian cyst, right side; N83.202 - Unspecified ovarian cyst, left side Disposition: DC-01 TO HOME OR SELFCARE Is pt being admited?: No Does the pt Need Aspirin: No Condition: Stable Instructions: Abdominal Pain (ED) Additional Instructions: Have a repeat serum Quant drawn in 48 hours by her COAL TRIMMER MACHINE OPERATOR or return to the emergency room. ER serum Quant of this visit was 3358. Prescriptions: Nitrofurantoin Cassia/M-Cryst [Macrobid CAP] 100 mg PO Q12HR #10 capsule Referrals: [facility] [Provider Group] - 3-5 Days [facility] [Provider [facility]] - 3-5 Days Forms: Work/School Release Form(ED) Time of Disposition: 18:19
[2019-03-31 18:49] VITALS: BP 141/84
== END 2019-03-31 18:45 | disposition home or self-care (01) ==
LOC: ED 13:35
DX: O23.41 Unspecified infection of urinary tract in pregnancy, first trimester (principal); O34.81 Maternal care for other abnormalities of pelvic organs, first trimester; N83.202 Unspecified ovarian cyst, left side; N83.201 Unspecified ovarian cyst, right side; Z3A.01 Less than 8 weeks gestation of pregnancy; Z79.899 Other long term (current) drug therapy
CPT/HCPCS: 36415; 76801; 76817; 81001; 84702; 85025; 87086

== ENCOUNTER 2019-07-06 04:16 | Emergency (ER) | payer MEDICAID ==
[2019-07-06 04:24] VITALS: BP 132/86
[2019-07-06] MEDS ORDERED: ACETAMINOPHEN 500 MG TAB PO ONE (07:18)
[2019-07-06 08:03] LABS: Bacteria,Urine 4+ /HPF (Negative); Bilirubin,Urine NEG (Negative); Blood,Urine MOD (Negative); Color,Urine Yellow (Yellow); Mucus,Urine 3+ /HPF; Urobilinogen,Urine < 2.0 mg/dL (<2.0)
[2019-07-06 08:11] LABS: WBC,Urine > 182.0 /HPF (0.0-6.0)
--- NOTE | 2019-07-06 08:56 | Ultrasound Report ---
ULTRASOUND OBSTETRIC INDICATION / CLINICAL INFORMATION: 19 weeks with abd pain. Clinical Gestational Age (GA): 19.3 weeks.days TECHNIQUE: Transabdominal. COMPARISON: Ultrasound dated 03/31/19 FINDINGS: There is a single intrauterine . Biparietal Diameter = 4.3 cm = 19.0 weeks.days Head Circumference = 16.7 cm = 19.3 weeks.days Abdominal Circumference = 15.0 cm = 20.2 weeks.days Femur Length = 2.9 cm = 19.0 weeks.days Average Ultrasound Age (AUA) = 19.3 weeks.days Heart Rate: 141 beats per minute. Estimated Weight in grams (if calculated): 302 Estimated Weight Growth Percentile (if calculated): 73.7 Position: breech. Cervix: closed. Length in cm (if measured): 3.6 Placenta: anterior and free of the os. Small placental lakes are noted. Amniotic Fluid Volume: normal Amniotic Fluid Index (PHILOMENA) in cm (if calculated): Not calculated. Maternal Adnexa: Not visualized. IMPRESSION: 1. Single, living intrauterine with estimated sonographic age of 19.3 weeks.days 2. No significant sonographic abnormality. Signer Name: Kaleb Morales MD Signed: 07/06/2019 8:52 AM Workstation Name: [id number]
--- NOTE | 2019-07-06 09:30 | Emergency Department Report ---
ED HPI - General Chief complaint: Abdominal Pain Stated complaint: 19WEEKS ABDOMINAL PAIN Time Seen by Provider: 07/06/19 08:27 Source: patient Mode of arrival: Ambulatory Limitations: No Limitations - History of Present Illness Initial comments: This is a 28-year-old female nontoxic, well nourished in appearance, no acute signs of distress presents to the ED with c/o of dysuria and pelvic pressure. Patient stated she is currently 19 weeks and does follow up with a [facility]. 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 Patient denies any vaginal bleeding. Denies any flank pain or back pain. Patient denies chest pain, short of breath, fever, chills, headache, stiff neck, numbness or tingling. Patient denies any diarrhea or constipation. Patient denies any recent travels. Patient denies any allergies or significant past medical history. MD Complaint: other (pelvic pain) -: days(s) (1) Location: pelvis Radiation: none Severity: mild Severity scale (0 -10): 3 Quality: cramping Consistency: intermittent Improves with: none Worsens with: none Associated symptoms: denies other symptoms. denies: nausea/vomiting, vaginal bleeding, vaginal discharge, abdominal pain, dysuria, headache, vision changes, malaise, dysparuenia, rash, seizure, shortness of breath, syncope, weakness Vaginal bleeding: none :: Yes Number of weeks : 19 OB History - Current : no complications Pre-eulogio care: followed by OB - Related Data Previous Rx's Medication Instructions Recorded Last Taken Type metroNIDAZOLE [Flagyl] 500 mg PO BID #14 tablet 11/14/14 Unknown Rx Nitrofurantoin [place]/M-Cryst 100 mg PO Q12HR #14 capsule 11/15/14 Unknown Rx [Macrobid] Acetaminophen/Codeine [Tylenol #3] 1 tab PO Q6H PRN #21 tab 05/08/15 Unknown Rx Moxifloxacin 0.5% [Vigamox] 1 drops OD Q8H #1 bottle 05/08/15 Unknown Rx Cyclobenzaprine [Flexeril] 10 mg PO TID PRN #15 tablet 02/23/16 Unknown Rx Ibuprofen [Motrin 800 MG tab] 800 mg PO Q8HR PRN #30 tablet 02/23/16 Unknown Rx Acetaminophen/Codeine [Tylenol 1 tab PO Q6H PRN #8 tab 11/25/16 Unknown Rx /Codeine # 3 tab] Naproxen [Naprosyn TAB] 500 mg PO BID PRN #30 tablet 11/25/16 Unknown Rx Polyvinyl Alcohol/Povidone 15 ml OP Q4H PRN #1 drops 11/25/16 Unknown Rx [Artificial Tears Drops] Tobramycin 0.3% [Tobrex] 1 drop OU Q4H #1 bottle 11/25/16 Unknown Rx Naproxen [Naprosyn] 500 mg PO BID #14 tablet 08/07/17 Unknown Rx metroNIDAZOLE [Flagyl] 500 mg PO Q12HR #14 tab 03/13/19 Unknown Rx Nitrofurantoin [place]/M-Cryst 100 mg PO Q12HR #10 capsule 03/31/19 Unknown Rx [Macrobid CAP] Nitrofurantoin [place]/M-Cryst 100 mg PO Q12HR #14 capsule 07/06/19 Unknown Rx [Macrobid CAP] Allergies Allergy/AdvReac Type Severity Reaction Status Date / Time No Known Allergies Allergy Verified 05/08/15 18:17 ED Review of Systems ROS: Stated complaint: 19WEEKS ABDOMINAL PAIN Other details as noted in HPI Constitutional: denies: chills, fever Eyes: denies: eye pain, eye discharge, vision change ENT: denies: ear pain, throat pain Respiratory: denies: cough, shortness of breath, wheezing Cardiovascular: denies: chest pain, palpitations Endocrine: no symptoms reported Gastrointestinal: other (pelvic pain). denies: abdominal pain, nausea, diarrhea Genitourinary: dysuria. denies: urgency, frequency, hematuria, discharge Musculoskeletal: denies: back pain, joint swelling, arthralgia Skin: denies: rash, lesions Neurological: denies: headache, weakness, paresthesias Psychiatric: denies: anxiety, depression Hematological/Lymphatic: denies: easy bleeding, easy bruising ED Past Medical Hx - Past Medical History Previous Medical History?: No - Surgical History Past Surgical History?: Yes Additional Surgical History: 2 - Social History Smoking Status: Former Smoker Substance Use Type: None - Medications Home Medications: Home Medications Medication Instructions Recorded Confirmed Last Taken Type metroNIDAZOLE [Flagyl] 500 mg PO BID #14 tablet 11/14/14 Unknown Rx Nitrofurantoin [place]/M-Cryst 100 mg PO Q12HR #14 capsule 11/15/14 Unknown Rx [Macrobid] Acetaminophen/Codeine [Tylenol #3] 1 tab PO Q6H PRN #21 tab 05/08/15 Unknown Rx Moxifloxacin 0.5% [Vigamox] 1 drops OD Q8H #1 bottle 05/08/15 Unknown Rx Cyclobenzaprine [Flexeril] 10 mg PO TID PRN #15 tablet 02/23/16 Unknown Rx Ibuprofen [Motrin 800 MG tab] 800 mg PO Q8HR PRN #30 tablet 02/23/16 Unknown Rx Acetaminophen/Codeine [Tylenol 1 tab PO Q6H PRN #8 tab 11/25/16 Unknown Rx /Codeine # 3 tab] Naproxen [Naprosyn TAB] 500 mg PO BID PRN #30 tablet 11/25/16 Unknown Rx Polyvinyl Alcohol/Povidone 15 ml OP Q4H PRN #1 drops 11/25/16 Unknown Rx [Artificial Tears Drops] Tobramycin 0.3% [Tobrex] 1 drop OU Q4H #1 bottle 11/25/16 Unknown Rx Naproxen [Naprosyn] 500 mg PO BID #14 tablet 08/07/17 Unknown Rx metroNIDAZOLE [Flagyl] 500 mg PO Q12HR #14 tab 03/13/19 Unknown Rx Nitrofurantoin [place]/M-Cryst 100 mg PO Q12HR #10 capsule 03/31/19 Unknown Rx [Macrobid CAP] Nitrofurantoin [place]/M-Cryst 100 mg PO Q12HR #14 capsule 07/06/19 Unknown Rx [Macrobid CAP] ED Physical Exam - General Limitations: No Limitations General appearance: alert, in no apparent distress - Head Head exam: Present: atraumatic, normocephalic - Neck Neck exam: Present: normal inspection, full ROM. Absent: tenderness, meningismus, lymphadenopathy - Respiratory Respiratory exam: Present: normal lung sounds bilaterally. Absent: respiratory distress, wheezes, rales, rhonchi, stridor, chest wall tenderness, accessory muscle use, decreased breath sounds, prolonged expiratory - Cardiovascular Cardiovascular Exam: Present: regular rate, normal rhythm, normal heart sounds. Absent: irregular rhythm, systolic murmur, diastolic murmur, rubs, gallop - GI/Abdominal GI/Abdominal exam: Present: soft, normal bowel sounds. Absent: distended, tenderness, guarding, rebound, rigid, diminished bowel sounds - Extremities Exam Extremities exam: Present: full ROM - Back Exam Back exam: Present: normal inspection, full ROM. Absent: tenderness, CVA tenderness (R), CVA tenderness (L), muscle spasm, paraspinal tenderness, vertebral tenderness, rash noted - Neurological Exam Neurological exam: Present: alert, oriented X3, normal gait - Psychiatric Psychiatric exam: Present: normal affect, normal mood - Skin Skin exam: Present: warm, dry, intact, normal color. Absent: rash ED Course Vital Signs 07/06/19 04:20 Temperature 98.8 F Pulse Rate 97 H Respiratory 18 Rate Blood Pressure 132/86 O2 Sat by Pulse 100 Oximetry - Reevaluation(s) Reevaluation #1: 07/06/19 09:33 Patient is speaking in full sentences with no signs of distress noted. ED Medical Decision Making - Medical Decision Making This is a 28-year-old female that presents with UTI and pelvic pain during . Patient is stable and was examined by me. UA obtained. Patient does not have any CVA tenderness. No signs or symptoms of pyelonephritis. Ultrasound OB is within normal limits. Patient does not have any abdominal tenderness upon exam. Vital signs are stable. Patient was instructed to Follow-up with a CHOKE [facility] doctor in 3-5 days or if symptoms worsen and continue return to emergency room as soon as possible. At time of discharge, the patient does not seem toxic or ill in appearance. No acute signs of distress noted. Patient agrees to discharge treatment plan of care. No further questions noted by the patient. Critical care attestation.: If time is entered above; I have spent that time in minutes in the direct care of this critically ill patient, excluding procedure time. ED Disposition Clinical Impression: UTI (urinary tract infection), Pelvic pain during Disposition: DC- TO HOME OR SELFCARE Is pt being admited?: No Does the pt Need Aspirin: No Condition: Stable Instructions: (ED), Urinary Tract Infection in Women (ED) Additional Instructions: Follow-up with a CHOKE SETTER doctor in 3-5 days or if symptoms worsen and continue return to emergency room as soon as possible. Prescriptions: Nitrofurantoin [place]/M-Cryst [Macrobid CAP] 100 mg PO Q12HR #14 capsule Referrals: PRIMARY CARE, [Primary Care Provider] - 3-5 Days [facility] [Provider Group] - 3-5 Days Forms: Work/School Release Form(ED)
== END 2019-07-06 09:43 | disposition home or self-care (01) ==
LOC: ED 04:16
DX: O23.42 Unspecified infection of urinary tract in pregnancy, second trimester (principal); Z87.891 Personal history of nicotine dependence; Z79.899 Other long term (current) drug therapy; Z3A.19 19 weeks gestation of pregnancy
CPT/HCPCS: 76805; 81001; 87076; 87086; 87186

== ENCOUNTER 2019-11-17 18:23 | Inpatient (IN) | payer MEDICAID ==
[2019-11-17] MEDS ORDERED: TERBUTALINE 1 MG/1 ML INJ SUB-Q PRN (19:29)
[2019-11-17] MEDS ORDERED: TERBUTALINE 1 MG/1 ML INJ IVP PRN (19:29)
[2019-11-17] MEDS ORDERED: AMPICILLIN/NS 2 GM/100 ML 2 GM/100 ML BAG IV ONE (19:29)
[2019-11-17] MEDS ORDERED: fentaNYL 100 MCG/2 ML INJ IV PRN (19:29)
[2019-11-17] MEDS ORDERED: ePHEDrine SULFATE 50 MG/1 ML INJ IV PRN ×2 (19:29→21:48)
[2019-11-17] MEDS ORDERED: LIDOCAINE (2%) 20 MG/1 ML VIAL 20 ML MDV INFILTRATI ONE ×2 (19:29→22:35)
[2019-11-17] MEDS ORDERED: MINERAL OIL 30 ML ORAL LIQD PO PRN (19:29)
[2019-11-17] MEDS ORDERED: LACTATED RINGERS 1,000 ML IV SCH (20:00)
[2019-11-17] MEDS ORDERED: OXYTOCIN 20 UNIT/1000ML DRIP 20 UNITS/1,000 ML BAG IV SCH (20:00)
[2019-11-17] MEDS ORDERED: OXYTOCIN DRIP 30 UNITS/500 ML BAG IV SCH (20:00)
[2019-11-17 20:24] LABS: Hematocrit 33.7 % (30.3-42.9); Hemoglobin 11.2 gm/dl (10.1-14.3); Mean Corpuscular HGB Conc 33 % (30-34); Mean Corpuscular Volume 83 fl (79-97); Platelet Count 175 K/mm3 (140-440); Red Blood Count 4.04 M/mm3 (3.65-5.03); Red Cell Distribution Width 16.7 % (13.2-15.2)
--- NOTE | 2019-11-17 20:44 | History and Physical Report ---
History of Present Illness Date of examination: 11/17/19 Date of admission: 11/17/19 Chief complaint: Leaking fluid, contractions History of present illness: 28yo G 3 P 1 0 1 1 @ 38 weeks 3 days here with c/o leaking clear fluid since 13:00 and contractions. She reports +FMs but denies VB. She is a [facility] patient. No records are available. She denies any complications throughout the . Past History Past Medical History: no pertinent history Past Surgical History: no surgical history Family/Genetic History: diabetes (mom), hypertension (mom) Social history: single, lives with family, full code. denies: smoking, alcohol abuse, prescription drug abuse, IV drug use - Obstetrical History Expected Date of Delivery: 11/28/19 Actual Gestation: 38 Week(s) 3 Day(s) : 3 Para: 1 Hx # Term Pregnancies: 1 Number of Pregnancies: 0 Spontaneous Abortions: 0 Induced : 1 Number of Living Children: 1 Medications and Allergies Allergies Allergy/AdvReac Type Severity Reaction Status Date / Time No Known Allergies Allergy Verified 11/17/19 18:32 Active Meds: Active Medications Ephedrine Sulfate (Ephedrine Sulfate) 10 mg IV Q2M PRN PRN Reason: Hypotension Fentanyl (Sublimaze) 100 mcg IV Q2H PRN PRN Reason: Pain,Severe (7-10) LABOR PAIN Last Admin: 11/17/19 20:23 Dose: 100 mcg Documented by: Oxytocin/Sodium Chloride (Pitocin/Ns 20 Unit/1000ml Drip) 20 units in 1,000 mls @ 125 mls/hr IV DIRECT KATIA Oxytocin/Sodium Chloride (Pitocin/Ns 30 Unit/500ml) 30 units in 500 mls @ 1 mls/hr IV TITR KATIA; Protocol Lactated Ringer's (Lactated Ringers) 1,000 mls @ 125 mls/hr IV DIRECT KATIA Ampicillin Sodium (Ampicillin/Ns 1 Gm/50 Ml) 1 gm in 50 mls @ 100 mls/hr IV Q4H KATIA; Protocol Mineral Oil (Mineral Oil) 30 ml PO QHS PRN PRN Reason: Constipation Terbutaline Sulfate (Brethine) 0.25 mg SUB-Q ONCE PRN PRN Reason: Hyperstimulation/Hypertonicity Terbutaline Sulfate (Brethine) 0.25 mg IVP ONCE PRN PRN Reason: Hyperstimulation/Hypertonicity Review of Systems All systems: negative - Vital Signs Vital signs: Vital Signs Temp Resp Pulse Ox 98.2 F 16 98 11/17/19 18:42 11/17/19 18:42 11/17/19 18:42 Temp Pulse Resp BP Pulse Ox 98.2 F 96 H 18 140/89 98 11/17/19 18:42 11/17/19 20:37 11/17/19 20:23 11/17/19 20:37 11/17/19 18:42 - Obstetrical FHR: category 2 FHR comments: baseline 140, moderate variability, + accels, intermittent variable decels Cervical Dilatation: 4 (per RN) Cervical Effacement Percentage: 80 (per RN) station: -2 (per RN) Uterine Contraction Frequency (min): 2-5 Uterine Contraction Pattern: Regular Results Result Diagrams: 11/17/19 18:58 Abnormal lab results 11/17/19 Range/Units 18:58 RDW 16.7 H (13.2-15.2) % All other labs normal. Assessment and Plan - Patient Problems (1) 38 weeks gestation of Current Visit: Yes Status: Acute (2) SROM (spontaneous rupture of membranes) Current Visit: Yes Status: Acute (3) Active labor at term Current Visit: Yes Status: Acute Plan to address problem: Admit to L&D with routine labor orders Start ampicillin for GBS prophylaxis Anticipate vaginal delivery
[2019-11-17] MEDS ORDERED: DEXMEDETOMIDINE 200 MCG/2 ML VIAL IV ONE (21:17)
[2019-11-17] MEDS ORDERED: NALOXONE 2 MG/2 ML INJ IV PRN (21:48)
--- NOTE | 2019-11-17 21:55 | Anesthesia Consultation ---
Anesthesia Consult and Med Hx Date of service: 11/17/19 - Airway Anesthetic Teeth Evaluation: Good ROM Head & Neck: Adequate Mental/Hyoid Distance: Adequate Mallampati Class: Class II Intubation Access Assessment: Probably Good - Pulmonary Exam CTA: Yes - Cardiac Exam Cardiac Exam: RRR - Pre-Operative Health Status ASA Pre-Surgery Classification: ASA2 Proposed Anesthetic Plan: Epidural - Pulmonary Hx Smoking: No Hx Asthma: No Hx Respiratory Symptoms: No SOB: No COPD: No Home Oxygen Therapy: No Hx Pneumonia: No Hx Sleep Apnea: No - Cardiovascular System Hx Hypertension: No Hx Coronary Artery Disease: No Hx Heart Attack/AMI: No Hx Angina: No Hx Percutaneous Transluminal Coronary Angioplasty (PTCA): No Hx Cardia Arrhythmia: No Hx Pacemaker: No Hx Internal Defibrillator: No Hx Valvular Heart Disease: No Hx Heart Murmur: No Hx Peripheral Vascular Disease: No - Central Nervous System Hx Neuromuscular Disorder: No Hx Seizures: No CVA: No Hx Back Pain: No Hx Psychiatric Problems: No - Gastrointestinal Hx Ulcer: No Hx Gastroesophageal Reflux Disease: Yes - Endocrine Hx Renal Disease: No Hx End Stage Renal Disease: No Hx Cirrhosis: No Hx Liver Disease: No Hx Insulin Dependent Diabetes: No Hx Non-Insulin Dependent Diabetes: No Hx Thyroid Disease: No Hx Hypothyroidism: No Hx Hyperthyroidism: No - Hematic Hx Anemia: No Hx Sickle Cell Disease: No - Other Systems Hx Alcohol Use: No Hx Substance Use: No Hx Cancer: No Hx Obesity: Yes
--- NOTE | 2019-11-17 21:57 | Progress Note ---
Labor Epidural - Labor Epidural Start Time: 21:26 Stop Time: 21:29 Performed by:: CHARO BARRERA Procedure: Patient is requesting a laboring epidural for laboring pain. Patient IDed, H&P reviewed, all questions and concerns were answered, and consent was signed. Timeout was performed at bedside. Patient in sitting position. Sterile prep and drape was performed. [3] ml of 1% lidocaine skin wheal at L[4]- L 5[]. 18- gauge Touhy epidural needle was advanced to loss of resistance with air technique to 5cm. Negative CSF negative blood. Epidural catheter advanced to [10] centimeters. [negative] Aspiration [negative] test dose. Sterile dressing applied. Patient tolerated procedure.
[2019-11-17] MEDS ORDERED: fentaNYL-BUPIV 2 MCG/ML-0.125% 200 MCG/100 ML BAG EPIDURAL SCH (22:00)
[2019-11-17] MEDS ORDERED: miSOPROStol 200 MCG TAB PR ONE (22:52)
--- NOTE | 2019-11-17 23:09 | Procedure Note ---
OB Delivery Note - Delivery Date of Delivery: 11/17/19 (22:44) Surgeon: JONNY NUNN (CNM) Estimated blood loss: 200cc - Vaginal Delivery presentation: vertex Delivery position: OA Intrapartum events: none Delivery induction: none Delivery monitor: external FHT, external uterine Route of delivery: (22:44) Delivery placenta: spontaneous (22:50) Delivery cord: nuchal cord (CAN x1, loose; reduced after delivery of head), 3 umbilical vessels Episiotomy: none Delivery laceration: none Anesthesia: epidural Delivery comments: of a vigorous term 6 lbs 11.6 oz male on 11/17/19 @ 22:44. Baby placed [id number] on maternal abdomen, dried and bulb-suctioned by RN. After 2 mins umbilical cord double-clamped by me and cut by the patient. Cord blood collected.Spontaneous delivery of placenta, Nel-side presenting @ 22:50. Moderate lochia noted. Fundal massage and IV Pitocin bolus noted. Fundus firm with massage, ML/U-2. Cytotec 800 mcg DE administered. Fundus F/ML/U-2. Small lochia noted. Vaginal skid singh present. Perineum intact. Placenta discarded. Mom and baby in stable condition. - A at 1 minute: 8 at 5 minutes: 9 Infant Gender: Male (6 lbs 11.6 oz (3053 gm); 20 in)
[2019-11-17] MEDS ORDERED: AMPICILLIN/NS 1 GM/50 ML 1 GM/50 ML BAG IV SCH (23:31)
[2019-11-18 00:14] LABS: Hematocrit 30.8 % (30.3-42.9); Hemoglobin 10.2 gm/dl (10.1-14.3); Mean Corpuscular HGB Conc 33 % (30-34); Mean Corpuscular Volume 83 fl (79-97); Platelet Count 162 K/mm3 (140-440); Red Blood Count 3.69 M/mm3 (3.65-5.03); Red Cell Distribution Width 16.8 % (13.2-15.2)
[2019-11-18 00:26] LABS: Alanine Aminotransferase 6 units/L (7-56)
[2019-11-18 00:28] LABS: Bilirubin,Urine NEG (Negative); Blood,Urine MOD (Negative); Color,Urine Colorless (Yellow); Urobilinogen,Urine < 2.0 mg/dL (<2.0); WBC,Urine < 1.0 /HPF (0.0-6.0)
[2019-11-18] MEDS ORDERED: diphenhydrAMINE 25 MG CAP PO PRN (00:49)
[2019-11-18] MEDS ORDERED: PROMETHAZINE 25 MG TAB PO PRN (00:49)
[2019-11-18] MEDS ORDERED: ONDANSETRON 4 MG/2 ML INJ IV PRN (00:49)
[2019-11-18] MEDS ORDERED: MAGNESIUM HYDROXIDE (MOM) ORAL LIQD UDC PO PRN (00:49)
[2019-11-18] MEDS ORDERED: ACETAMINOPHEN 325 MG TAB PO PRN (00:49)
[2019-11-18] MEDS ORDERED: WITCH HAZEL/ GLYCERIN PAD TP PRN (00:49)
[2019-11-18] MEDS ORDERED: LANOLIN/ZINC/DIMETHICONE (LANSINOH) 7 GM TP PRN (00:49)
[2019-11-18] MEDS ORDERED: PROMETHAZINE 25 MG RECT SUPP PR PRN (00:49)
[2019-11-18] MEDS: IBUPROFEN 600 MG TAB PO SCH ×3 (01:03→18:26)
[2019-11-18] MEDS: HYDROcodone/ACETAMINOPHEN 5-325 MG TAB PO PRN ×3 (04:50→18:24)
--- NOTE | 2019-11-18 08:11 | Post Anesthesia Evaluation ---
- Post Anesthesia Evaluation Patient Participated: Yes Airway Patent: Yes Stable Respiratory Function: Yes Nausea/Vomiting: No Temp > 96.8F: Yes Pain Manageable: Yes Adequeate Hydration: Yes Anesthesia Complications: No Block Receding Appropriately: Yes Patient on Ventilator: No
[2019-11-18] MEDS: FERROUS SULFATE 325 MG TAB PO SCH (09:17)
[2019-11-18] MEDS: PRENATAL VIT27-FE FUMARATE-FOLIC ACID VIT TAB PO SCH (09:17)
--- NOTE | 2019-11-18 12:02 | Progress Note ---
Assessment and Plan - Patient Problems (1) Status post normal vaginal delivery Current Visit: Yes Status: Acute Plan to address problem: Continue routine PP orders Anticipate d/c home tomorrow if B/P stable (2) Anemia Current Visit: Yes Status: Acute Qualifiers: Anemia type: other cause Other causes of anemia: acute posthemorrhagic Qualified Code(s): D62 - Acute posthemorrhagic anemia Plan to address problem: Asymptomatic Continue daily oral iron supplementation as directed Subjective - Subjective Date of service: 11/18/19 Principal diagnosis: S/P ; PPD#1 Interval history: See admission H & P; OB delivery summary; and PP progress notes Patient reports: appetite normal, voiding normally, pain well controlled, flatus, ambulating normally [place]: bottle feeding Objective - Vital Signs Latest vital signs: Vital Signs Temp Pulse Resp BP BP Pulse Ox 11/18/19 09:17 91 H 133/75 11/18/19 07:28 98.0 F 76 18 129/71 96 11/18/19 03:55 98.5 F 18 144/71 11/18/19 03:33 88 125/64 11/18/19 03:18 91 H 135/69 11/18/19 03:03 90 119/58 11/18/19 02:48 85 130/62 11/18/19 02:33 78 123/58 11/18/19 02:18 86 132/63 11/18/19 02:03 83 139/67 11/18/19 01:48 92 H 141/73 11/18/19 01:33 80 133/59 11/18/19 01:18 85 133/64 11/18/19 01:05 90 143/63 11/18/19 01:03 89 162/70 11/18/19 00:48 91 H 143/68 11/18/19 00:33 96 H 147/70 11/18/19 00:18 89 144/72 11/18/19 00:03 88 151/72 11/17/19 23:51 96 H 148/62 11/17/19 23:48 96 H 148/62 11/17/19 23:33 86 150/73 11/17/19 23:18 99 H 158/80 11/17/19 23:02 108 H 158/76 11/17/19 22:48 115 H 145/96 11/17/19 22:44 110 H 100 11/17/19 22:39 100 H 100 11/17/19 22:35 90 140/92 11/17/19 22:34 106 H 100 11/17/19 22:29 84 100 11/17/19 22:24 90 100 11/17/19 22:19 87 100 11/17/19 22:18 89 148/80 11/17/19 22:17 99 H 91 11/17/19 22:14 94 H 100 11/17/19 22:10 106 H 135/73 11/17/19 22:09 99 H 100 11/17/19 22:05 100 H 146/81 11/17/19 22:04 106 H 100 11/17/19 22:02 102 H 152/87 11/17/19 21:59 95 H 100 11/17/19 21:56 92 H 151/81 11/17/19 21:54 104 H 100 11/17/19 21:50 102 H 165/86 11/17/19 21:49 109 H 100 11/17/19 21:45 105 H 157/85 11/17/19 21:44 95 H 100 11/17/19 21:39 99 H 100 11/17/19 21:38 96 H 154/83 11/17/19 21:36 88 152/82 11/17/19 21:34 96 H 153/84 11/17/19 21:33 96 H 100 11/17/19 21:32 93 H 150/79 11/17/19 21:30 98 H 153/86 11/17/19 21:28 97 H 158/87 100 11/17/19 21:26 96 H 144/82 11/17/19 21:24 100 H 155/83 11/17/19 21:23 96 H 18 100 11/17/19 21:22 99 H 150/78 11/17/19 21:20 95 H 142/70 11/17/19 21:18 92 H 139/78 100 11/17/19 20:37 96 H 140/89 11/17/19 20:27 96 H 16 140/89 11/17/19 20:23 18 11/17/19 18:42 98.2 F 16 98 Intake and Output 04/27/20 04/28/20 04/28/20 23:59 07:59 15:59 Intake Total 240 Output Total 800 1000 600 Balance -800 -760 -600 Intake: Intake, Free Water 240 Output: Urine 800 1000 600 Indwelling Catheter 400 Self-Catheterization 400 Void 1000 600 Other: Total, Output Amount 400 600 600 Weight 190 kg - Exam Breasts: Present: normal Cardiovascular: Present: Regular rate Lungs: Present: Normal air movement Abdomen: Present: soft Uterus: Present: firm, fundal height below umbilicus (U-2) Extremities: Present: normal Deep Tendon Reflex Grade: Normal +2 - Labs Labs: Abnormal lab results 11/17/19 11/17/19 11/17/19 Range/Units 18:58 23:35 23:35 RDW 16.7 H 16.8 H (13.2-15.2) % Creatinine 0.6 L (0.7-1.2) mg/dL ALT 6 L (7-56) units/L
[2019-11-18 13:57] LABS: Hemoglobin 9.4 gm/dl (10.1-14.3)
[2019-11-18 14:00] LABS: Hematocrit 28.6 % (30.3-42.9)
[2019-11-19] MEDS: HYDROcodone/ACETAMINOPHEN 5-325 MG TAB PO PRN ×2 (00:44→09:54)
[2019-11-19] MEDS: IBUPROFEN 600 MG TAB PO SCH (08:08)
[2019-11-19] MEDS: PRENATAL VIT27-FE FUMARATE-FOLIC ACID VIT TAB PO SCH (10:54)
[2019-11-19] MEDS: FERROUS SULFATE 325 MG TAB PO SCH (10:54)
--- NOTE | 2019-11-19 12:00 | Progress Note ---
Assessment and Plan A: PP Day #2 Asymptomatic Anemia P: Follow Routine Orders Continue FeSO4 as ordered D/C Home today RTO in 6 weeks Subjective - Subjective Date of service: 11/19/19 Principal diagnosis: S/P ; PPD#1 Patient reports: appetite normal, voiding normally, pain well controlled, flatus, ambulating normally [place]: doing well, bottle feeding Objective - Vital Signs Latest vital signs: Vital Signs Temp Pulse Resp BP BP Pulse Ox 11/19/19 10:54 77 133/71 11/19/19 09:19 98.0 F 84 18 126/65 96 11/19/19 00:44 20 11/19/19 00:11 98.2 F 85 20 123/70 99 11/18/19 21:00 68 131/74 11/18/19 17:10 97.9 F 83 18 131/55 97 11/18/19 12:27 98.1 F 89 18 130/72 96 Intake and Output 11/18/19 11/19/19 11/19/19 22:59 06:59 14:59 Intake Total 240 120 Balance 240 120 Intake: Oral 240 120 Other: Total, Intake Amount 240 120 # Voids Void 1 1 - Exam Breasts: Present: normal Cardiovascular: Present: Regular rate Lungs: Present: Clear to auscultation, Normal air movement Abdomen: Present: normal appearance, soft, normal bowel sounds Uterus: Present: normal, firm, fundal height below umbilicus Extremities: Present: normal - Labs Labs: Abnormal lab results 11/18/19 Range/Units 13:04 Hgb 9.4 L (10.1-14.3) gm/dl Hct 28.6 L (30.3-42.9) %
--- NOTE | 2019-11-19 12:04 | Discharge Summary ---
Providers - Providers Date of Admission: 11/17/19 20:36 Date of discharge: 11/19/19 Attending physician: CHRISTINA ACOSTA MD Primary care physician: CHRISTINA ACOSTA MD Hospitalization Reason for admission: rupture of membranes Delivery: Episiotomy: none Laceration: none Other procedures: none complications: none Discharge diagnosis: IUP at term delivered [place] baby: male Condition at discharge: Good Disposition: DC-01 TO HOME OR SELFCARE Plan - Provider Discharge Summary Activity: routine, no sex for 6 weeks, no heavy lifting 4 weeks, no strenuous exercise Diet: routine Instructions: routine Additional instructions: [] Smoking cessation referral if applicable(refer to patient education folder for contact #) [] Refer to [facility]'s [facility] Booklet Call your doctor immediately for: * Fever > 100.5 * Heavy vaginal bleeding ( >1 pad per hour) * Severe persistent headache * Shortness of breath * Reddened, hot, painful area to leg or breast * Drainage or odor from incision. * Keep incision clean and dry at all times and follow doctor's instructions regarding bathing/showering - Follow up plan Follow up: CHRISTINA ACOSTA MD [Primary Care Provider] - 6 Weeks Forms: [facility] Discharge Summary
[2019-11-19 16:13] VITALS: BP 131/78
== END 2019-11-19 17:00 | disposition home or self-care (01) | DRG 774 ==
LOC: TRG 18:23 → APU 18:24 → LD 20:20 → TRG 20:36 → LD 20:36 → OB 11-18 04:21
PROVIDERS: ADMIT Obstetrics & Gynecology; ATTEND Obstetrics & Gynecology
PROC: 10E0XZZ Delivery of Products of Conception, External Approach (ICD-10-PCS; principal; 2019-11-17)
PROC: 3E0R3BZ Introduction of Anesthetic Agent into Spinal Canal, Percutaneous Approach (ICD-10-PCS; 2019-11-17)
PROC: 00HU33Z Insertion of Infusion Device into Spinal Canal, Percutaneous Approach (ICD-10-PCS; 2019-11-17)
DX: O76 Abnormality in fetal heart rate and rhythm complicating labor and delivery (principal); O16.5 Unspecified maternal hypertension, complicating the puerperium; Z3A.38 38 weeks gestation of pregnancy; Z37.0 Single live birth; O69.81X0 Labor and delivery complicated by cord around neck, without compression, not applicable or unspecified; D62 Acute posthemorrhagic anemia; O90.81 Anemia of the puerperium
CPT/HCPCS: 36415; 81001; 82565; 83615; 84450; 84460; 84550; 85014; 85018; 85027; 86762; 86850; 86900; 86901; G0378; J0290; J2590; J3010; J3490; J7120

== ENCOUNTER 2021-02-27 09:30 | Emergency (ER) | payer MEDICAID ==
[2021-02-27] MEDS ORDERED: ASPIRIN 325 MG TAB PO ONE (09:56)
--- NOTE | 2021-02-27 10:32 | XRay Report ---
CHEST 2 VIEWS INDICATION: chest pain. COMPARISON: None. FINDINGS: Support devices: None. Heart: Within normal limits. Lungs/Pleura: No acute air space or interstitial disease. No significant pleural effusion. IMPRESSION: No acute findings. Signer Name: Seth Jarrell MD Signed: 02/27/2021 10:28 AM Workstation Name: [email or web address][id number]
[2021-02-27 10:49] LABS: Basophils % (Auto) 0.4 % (0.0-1.8); Eosinophils % (Auto) 0.8 % (0.0-4.3); Hematocrit 44.2 % (30.3-42.9); Hemoglobin 15.1 gm/dl (10.1-14.3); Lymphocytes # (Auto) 2.5 K/mm3 (1.2-5.4); Lymphocytes % (Auto) 51.8 % (13.4-35.0); Mean Corpuscular HGB Conc 34 % (30-34); Mean Corpuscular Volume 92 fl (79-97); Monocytes # (Auto) 0.3 K/mm3 (0.0-0.8); Monocytes % (Auto) 6.7 % (0.0-7.3); Platelet Count 240 K/mm3 (140-440); Red Blood Count 4.83 M/mm3 (3.65-5.03); Red Cell Distribution Width 14.5 % (13.2-15.2)
[2021-02-27 11:11] LABS: Alanine Aminotransferase 81 units/L (7-56); Albumin 4.4 g/dL (3.9-5); BUN/Creatinine Ratio 11; Blood Urea Nitrogen 10 mg/dL (7-17); Calcium 9.8 mg/dL (8.4-10.2); Hemolysis Index 8
--- NOTE | 2021-02-27 11:49 | Emergency Department Report ---
HPI - General Chief Complaint: Chest Pain Time Seen by Provider: 02/27/21 11:30 - HPI HPI: Room 1 The patient is a 30-year-old female present with a chief complaint of chest pain. Patient states her symptoms began yesterday with substernal pain described as tightness. Patient states the symptoms will come and go. Patient denies shortness of breath, nausea/vomiting or diaphoresis. Patient states at one point he feels though her heart was beating quickly. Patient denies any recent flights/long car trips, history of fever or cough. Patient is currently asymptomatic ED Past Medical Hx - Past Medical History Previous Medical History?: No - Surgical History Past Surgical History?: Yes Additional Surgical History: 2 - Family History Family history: no significant - Social History Smoking Status: Never Smoker Substance Use Type: None (Denies illicit drug use), Alcohol (Rarely) - Medications Home Medications: Home Medications Medication Instructions Recorded Confirmed Last Taken Type oxyCODONE /ACETAMINOPHEN [Percocet 1 tab PO Q4HR #15 tab 11/19/19 Unknown Rx 5/325] Famotidine [Pepcid] 20 mg PO BID #30 tablet 02/27/21 Unknown Rx ED Review of Systems ROS: Stated complaint: SEVERE CHEST PAIN Other details as noted in HPI Constitutional: denies: diaphoresis, fever Eyes: denies: eye pain ENT: denies: throat pain Respiratory: denies: cough, shortness of breath Cardiovascular: chest pain, palpitations Endocrine: no symptoms reported Gastrointestinal: denies: nausea, vomiting Genitourinary: denies: dysuria Musculoskeletal: denies: back pain Neurological: denies: headache Physical Exam - Physical Exam Vital Signs: Vital Signs 02/27/21 09:53 Temperature 98.6 F Pulse Rate 89 Respiratory 16 Rate Blood Pressure 136/95 [Right] O2 Sat by Pulse 99 Oximetry Physical Exam: GENERAL: The patient is well-developed well-nourished female lying on stretcher not appearing to be in acute distress. [] HEENT: Normocephalic. Atraumatic. Extraocular motions are intact. Patient has moist mucous membranes. NECK: Supple. Trachea midline CHEST/LUNGS: Clear to auscultation. There is no respiratory distress noted. HEART/CARDIOVASCULAR: Regular. There is no tachycardia. There is no gallop rub or murmur. ABDOMEN: Abdomen is soft, nontender. Patient has normal bowel sounds. There is no abdominal distention. SKIN: There is no rash. There is no edema. There is no diaphoresis. NEURO: The patient is awake, alert, and oriented. The patient is cooperative. The patient has no focal neurologic deficits. The patient has normal speech and gait. GCS 15 MUSCULOSKELETAL: There is no evidence of acute injury. ED Course Vital Signs 02/27/21 09:53 Temperature 98.6 F Pulse Rate 89 Respiratory 16 Rate Blood Pressure 136/95 [Right] O2 Sat by Pulse 99 Oximetry - Reevaluation(s) Reevaluation #1: 02/27/21 13:04 Patient remains asymptomatic ED Medical Decision Making - Lab Data Result diagrams: 02/27/21 10:06 02/27/21 10:06 Laboratory Tests 02/27/21 02/27/21 02/27/21 10:06 10:06 10:06 WBC 4.9 RBC 4.83 Hgb 15.1 H Hct 44.2 H MCV 92 MCH 31 MCHC 34 RDW 14.5 Plt Count 240 Lymph % (Auto) 51.8 H [place] % (Auto) 6.7 Eos % (Auto) 0.8 Baso % (Auto) 0.4 Lymph # (Auto) 2.5 [place] # (Auto) 0.3 Eos # (Auto) 0.0 Baso # (Auto) 0.0 Seg Neutrophils % 40.3 Seg Neutrophils # 2.0 D-Dimer Sodium 133 L Potassium 4.6 Chloride 97.2 L Carbon Dioxide 24 Anion Gap 16 BUN 10 Creatinine 0.9 Estimated GFR > 60 BUN/Creatinine Ratio 11 Glucose 78 Calcium 9.8 Total Bilirubin 0.40 AST 45 H ALT 81 H Alkaline Phosphatase 52 Troponin T < 0.010 Total Protein 8.2 Albumin 4.4 Albumin/Globulin Ratio 1.2 Lipase 28 TSH Free T4 HCG, Qual 02/27/21 02/27/21 02/27/21 11:43 11:43 11:43 WBC RBC Hgb Hct MCV MCH MCHC RDW Plt Count Lymph % (Auto) [place] % (Auto) Eos % (Auto) Baso % (Auto) Lymph # (Auto) [place] # (Auto) Eos # (Auto) Baso # (Auto) Seg Neutrophils % Seg Neutrophils # D-Dimer < 135.00 Sodium Potassium Chloride Carbon Dioxide Anion Gap BUN Creatinine Estimated GFR BUN/Creatinine Ratio Glucose Calcium Total Bilirubin AST ALT Alkaline Phosphatase Troponin T Total Protein Albumin Albumin/Globulin Ratio Lipase TSH 1.100 Free T4 1.20 HCG, Qual Negative - EKG Data -: EKG Interpreted by Me EKG shows normal: sinus rhythm Rate: normal - EKG Data When compared to previous EKG there are: previous EKG unavailable Interpretation: other (No ischemic changes seen) - Radiology Data Radiology results: report reviewed (Chest x-ray), image reviewed (Chest x-ray) interpreted by me: Chest x-ray-no focal infiltrates, no pneumothorax. No foreign body seen [facility] [address] [place] [address] XRay Report Signed Patient: STACEY MOORE MR#: [id number] : 1990 Acct:[id number] Age/Sex: 30 / F ADM Date: 02/27/21 Loc: ED [address]: Ordering Physician: CONY POMPA MD Date of Service: 02/27/21 Procedure(s): XR chest routine 2V Accession Number(s): [id number] cc: ED MD ALETHA Fluoro Time In Minutes: CHEST 2 VIEWS INDICATION: chest pain. COMPARISON: None. FINDINGS: Support devices: None. Heart: Within normal limits. Lungs/Pleura: No acute air space or interstitial disease. No significant pleural effusion. IMPRESSION: No acute findings. Signer Name: Seth Jarrell MD Signed: 02/27/2021 10:28 AM Workstation Name: [id number] Transcribed By: ES Dictated By: Steh Jarrell MD Electronically Authenticated By: Seth Jarrell MD Signed Date/Time: 02/27/21 1028 DD/ 1027 TD/TT: Print Cancel - Differential Diagnosis GERD, costochondritis, dysrhythmia, PE, ACS, pericarditis Critical care attestation.: If time is entered above; I have spent that time in minutes in the direct care of this critically ill patient, excluding procedure time. ED Disposition Clinical Impression: Atypical chest pain Disposition: DC-01 TO HOME OR SELFCARE Is pt being admited?: No Does the pt Need Aspirin: No Condition: Stable Instructions: Nonspecific Chest Pain, Adult, Gastroesophageal Reflux Disease, Adult, [id number] Additional Instructions: Return to the emergency department should you develop worsening symptoms, inability to tolerate food or liquids, high fever or any other concerns Prescriptions: Famotidine [Pepcid] 20 mg PO BID #30 tablet Referrals: THA SALES MD [Staff Physician] - 3-5 Days CARIDAD ZENG MD [Staff Physician] - 3-5 Days (Dr Zeng is a inside channel account manager. Please follow-up with him for further evaluation) Time of Disposition: 13:08 Heart Score - HEART Score History: Slightly suspicious EKG: Normal Age: < 45 Risk factors: No known risk factors Troponin: < normal limit HEART Score: 0 - EKG Read Time Time EKG Completed: 11:48 EKG Read Time: 11:51
[2021-02-27] MEDS ORDERED: ASPIRIN 81 MG TAB CHEW ONE (11:54)
[2021-02-27 12:38] LABS: Free T4 (Free Thyroxine) 1.2 ng/dL (0.76-1.46)
[2021-02-27 13:22] VITALS: BP 121/88
--- NOTE | 2021-02-28 14:31 | Electrocardiograph Report ---
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
== END 2021-02-27 13:22 | disposition home or self-care (01) ==
LOC: ED 09:30
DX: R07.89 Other chest pain (principal); Z98.890 Other specified postprocedural states; Z72.89 Other problems related to lifestyle; Z79.899 Other long term (current) drug therapy
CPT/HCPCS: 36415; 71046; 80053; 83690; 84439; 84443; 84484; 84703; 85025; 85379; 93005; 99284